=== PATIENT | male | born 1990 | race Caucasian/White ===

== ENCOUNTER 2017-02-27 20:54 | Emergency (ER) | payer MEDICAID ==
[2017-02-27] MEDS ORDERED: ONDANSETRON DISINTEGRATING 4 MG TAB PO ONE (21:12)
--- NOTE | 2017-02-27 21:14 | EDPHY ---
H & P Source: Patient Exam Limitations: No limitations - Medical/Surgical History Hx Asthma: No Hx Chronic Respiratory Disease: No Hx Diabetes: No Hx Cardiac Disease: No Hx Renal Disease: No Hx Cirrhosis: No Hx Alcoholism: No - Family History Significant Family History: No pertinent family hx - Social History Smoking Status: Current some day smoker Alcohol Use: Occasionally Drug Use: Marijuana Time Seen by Provider: 02/27/17 21:07 HPI/ROS: CHIEF COMPLAINT: Nausea, vomiting, sinus congestion, chills HISTORY OF PRESENT ILLNESS: The patient is a 18-year-old man who is here concerned about having the flu. He states that 3 days ago he began having a stuffy nose and told his coworkers he thought he was getting a cold. The next day he began feeling nauseous. He vomited once yesterday and once today. No diarrhea. He states that he had chills yesterday and thinks that he may have had a fever. Mild body aches. No neck stiffness. No altered mental status. He states that he is only nauseous when he eats. No abdominal pain. No chest pain or shortness of breath. REVIEW OF SYSTEMS: Constitutional: See HPI EENTM: See HPI Respiratory: Mild cough, smoker Cardiac: denies: chest pain, irregular heart rate, lightheadedness, palpitations Gastrointestinal/Abdominal: See HPI Genitourinary: denies: dysuria, frequency, hematuria, pain Musculoskeletal: denies: joint pain, muscle pain Skin: denies: lesions, rash, jaundice, bruising Neurological: denies: headache, numbness, paresthesia, tingling, dizziness, weakness Hematologic/Lymphatic: denies: blood clots, easy bleeding, easy bruising Immunologic/allergic: denies: HIV/AIDS, transplant EXAM: GENERAL: Well-appearing, well-nourished and in no acute distress. HEAD: Atraumatic, normocephalic. EYES: Pupils equal round and reactive to light, extraocular movements intact, sclera anicteric, conjunctiva are normal. ENT: TMs normal, nares patent, oropharynx clear without exudates. Moist mucous membranes. NECK: Normal range of motion, supple without lymphadenopathy or JVD. LUNGS: Breath sounds clear to auscultation bilaterally and equal. No wheezes rales or rhonchi. HEART: Regular rate and rhythm without murmurs, rubs or gallops. ABDOMEN: Soft, nontender, normoactive bowel sounds. No guarding, no rebound. No masses appreciated. BACK: No CVA tenderness, no spinal tenderness, step-offs or deformities EXTREMITIES: Normal range of motion, no pitting or edema. No clubbing or cyanosis. NEUROLOGICAL: Cranial nerves II through XII grossly intact. Normal speech, normal gait. 5/5 strength, normal movement in all extremities, normal sensation PSYCH: Normal mood, normal affect. SKIN: Warm, dry, normal turgor, no visible rashes or lesions. (Anthony Ortega) Constitutional: Initial Vital Signs Temperature (C) 98.1 F 02/27/17 21:24 Heart Rate 84 02/27/17 21:24 Respiratory Rate 16 02/27/17 21:24 Blood Pressure 129/75 H 02/27/17 21:24 O2 Sat (%) 97 02/27/17 21:24 O2 Delivery Mode Room Air Allergies/Adverse Reactions: No Known Allergies Allergy (Unverified 02/27/17 21:12) Home Medications: Medication Instructions Recorded Ondansetron Odt [Zofran Odt 4 mg 4 mg PO Q6H PRN 5 Days #12 tab 02/27/17 (*)] AZITHROMYCIN [Z-PACK] 250 mg PO DAILY #6 tab 02/28/17 Medical Decision Making ED Course/Re-evaluation: The patient is well appearing on exam. He is nontoxic. He is afebrile. His abdominal exam is benign. He is concerned for flu. Will check flu swab and treat with Zofran and oral hydration and observe. 10:00 p.m. the patient's abdominal exam remains benign. He is tolerating p.o. although he states that is starting to give some heartburn which is very common for him. We will give him a GI cocktail and continue to observe. His flu swab is negative. 10:45 p.m. after receiving a GI cocktail the patient vomited. His abdominal exam remains benign. We will place an IV and hydrate and obtain lab work. Care transferred to Dr. Wilson at shift change. (Anthony Ortega) Differential Diagnosis: Partial list of the Differential diagnosis considered include but were not limited to; upper respiratory infection, influenza, gastritis, food poisoning and although unlikely based on the history and physical exam, I also considered pneumonia, acute coronary disease, sepsis, meningitis. (Anthony Ortega) Other Provider: The patient was seen and re-examined. Vital signs reviewed. Breath sounds seem diminished on the right base. He was given another L of IV fluids. A chest x-ray was performed and showed a curvilinear opacity on the right. Due to the patient's symptoms of persistent cough over the last 1 and half weeks, fever, and this radiographic abnormality the patient was given an antibiotic for presumed bronchitis. He is advised to follow up with his primary care provider for repeat x-ray to assure resolution. (Myra Wilson) - Data Points Laboratory Results: Laboratory Results 02/27/17 22:52 02/27/17 22:52 Medications Given: Discontinued Medications Al Hydroxide/Mg Hydroxide (Maalox Susp) 30 ml PO ONCE ONE Stop: 02/27/17 22:11 Last Admin: 02/27/17 22:16 Dose: 30 ml Hyoscyamine Sulfate (Levsin, Hyomax-Sl) 0.25 mg PO ONCE ONE Stop: 02/27/17 22:11 Last Admin: 02/27/17 22:16 Dose: 0.25 mg Sodium Chloride (Ns) 1,000 mls @ 0 mls/hr IV EDNOW ONE; Wide Open PRN Reason: Protocol Stop: 02/27/17 22:30 Last Admin: 02/27/17 22:55 Dose: 1,000 mls Sodium Chloride (Ns) 1,000 mls @ 0 mls/hr IV ONCE ONE; Wide Open PRN Reason: Protocol Stop: 02/27/17 23:50 Last Admin: 02/27/17 23:45 Dose: 1,000 mls Lidocaine (Lidocaine 2% Viscous) 15 ml PO ONCE ONE Stop: 02/27/17 22:11 Last Admin: 02/27/17 22:16 Dose: 15 ml Ondansetron HCl (Zofran Odt) 4 mg PO EDNOW ONE Stop: 02/27/17 21:13 Last Admin: 02/27/17 21:15 Dose: 4 mg Ondansetron HCl (Zofran) 4 mg IVP EDNOW ONE Stop: 02/27/17 22:30 Last Admin: 02/27/17 22:55 Dose: 4 mg Ondansetron HCl (Zofran Odt 4 Mg Prepack#2) 1 btl LUIS FERNANDO REIS ONE Stop: 02/27/17 23:50 Last Admin: 02/28/17 00:07 Dose: 1 btl Departure - Departure Disposition: Home, Routine, Self-Care Clinical Impression: Bronchitis, Vomiting, Dehydration Condition: Good Instructions: Ondansetron (By mouth) Additional Instructions: Rest. Drink plently of fluids. Follow up with your primary care provider or return to the ER sooner if symptoms worsen as discussed. Referrals: NONE *PRIMARY CARE P,. [Primary Care Provider] - As per Instructions Stand Alone Forms: Work Excuse Prescriptions: AZITHROMYCIN [Z-PACK] 250 mg PO DAILY #6 tab Ondansetron Odt [Zofran Odt 4 mg (*)] 4 mg PO Q6H PRN 5 Days #12 tab PRN Reason: Nausea/Vomiting, Can'T Take Po
[2017-02-27 21:27] VITALS: TEMP 98.1
[2017-02-27] MEDS ORDERED: LIDOCAINE 2% VISCOUS 15 ML UDCUP PO ONE (22:10)
[2017-02-27] MEDS ORDERED: MAG HYDROX/AL HYDROX/SIMETH 30 ML UDCUP PO ONE (22:10)
[2017-02-27] MEDS ORDERED: HYOSCYAMINE SULFATE 0.125 MG TAB PO ONE (22:10)
[2017-02-27] MEDS ORDERED: ONDANSETRON 4 MG/2 ML VIAL IVP ONE ×2 (22:29→23:06)
[2017-02-27] MEDS ORDERED: NS 1,000 ML IV ONE ×2 (22:29→23:49)
[2017-02-27 22:55] LABS: PLATELET COUNT 200 10^3/uL (150-400)
[2017-02-27] MEDS ORDERED: ONDANSETRON 4MG PREPACK#2 BTL TAKEHOME ONE (23:49)
[2017-02-28 00:37] VITALS: BP 124/72; PULSE 82; RESP 14; O2SAT 95
== END 2017-02-28 00:33 | disposition home or self-care (01) ==
LOC: CED 20:54
DX: J20.9 Acute bronchitis, unspecified (principal); E86.0 Dehydration; F17.200 Nicotine dependence, unspecified, uncomplicated
CPT/HCPCS: 71046-PO; 80048-PO; 80076-PO; 81003-PO; 81015-PO; 83690-PO; 85025-PO; 87400-PO; 96374; J2405

== ENCOUNTER 2018-03-21 18:57 | Emergency (ER) | payer SELFPAY ==
--- NOTE | 2018-03-21 19:30 | EDPHY ---
H & P Time Seen by Provider: 03/21/18 19:04 HPI/ROS: CHIEF COMPLAINT: Right clavicle injury snowboarding HISTORY OF PRESENT ILLNESS: 27-year-old male arrives via private vehicle complaining of acute right clavicle pain which [place] his right shoulder and felt immediate pain. Intact skin. No dyspnea. No chest pain or trauma. No back pain or trauma. No abdominal pain or trauma. No head injury. He was helmeted. REVIEW OF SYSTEMS: 10 systems reviewed and negative with the exception of the elements mentioned in the history of present illness PAST MEDICAL/SURGICAL HISTORY: Prior left clavicle fracture. no anticoagulant use, no relevant medical/surgical history SOCIAL HISTORY: Works at [employer] PHYSICAL EXAM 1) GENERAL: Well-developed, well-nourished, alert and oriented. Appears uncomfortable. Answering questions appropriately. 2) HEAD: Normocephalic, atraumatic 3) HEENT: Pupils equal, round, reactive to light bilaterally. Negative Horners. Nasopharynx, oropharynx, clear. No deformity or angulation of nose. No septal hematoma. No rhinorrhea. No oral trauma. Ears bilaterally with normal tympanic membranes. No hemotympanum. No fluid or blood in the external auditory canal. No raccoon eyes. No Aranda sign. Teeth are normally aligned with no gross malocclusion, TMJ bilaterally nontender, facial bones nontender including the zygomatic arch, maxilla mandible. 4) NECK: No cervical collar is on. Posterior cervical spine is nontender, no stepoff, no effusion. Full range of motion which does not elicit any midline cervical spine pain, no posterior midline tenderness, no step-off. 5) LUNGS: Clear to auscultation bilaterally, no wheezes, no rhonchi, no retractions. No obvious signs of trauma. No chest wall pain. No flaring, no grunting. Moving symmetrically. No crepitus. 6) HEART: [Regular rate and rhythm, 7) ABDOMEN: No guarding, no rebound, no focal tenderness, no peritoneal signs, no signs of trauma, no ecchymosis 8) MUSCULOSKELETAL: Right upper extremity: Tender to palpation mid shaft clavicle with no tenting, no skin changes, no skin discoloration, no puncture wound. No axillary nerve dysfunction. Radial ulnar median nerve function intact distally. Brisk pulses distally. Otherwise, Moving all extremities, no focal areas of tenderness, no obvious trauma. 9) BACK: No midline vertebral tenderness, no fluctuance, no step-off, no obvious trauma, no visual or palpable abnormality. 10) SKIN: No laceration. No abrasion DIFFERENTIAL DIAGNOSIS: In no particular order including but not limited to fracture, sprain, strain, dislocation Smoking Status: Current every day smoker Constitutional: Initial Vital Signs Temperature (C) 37.3 C 03/21/18 19:01 Heart Rate 120 H 03/21/18 19:01 Respiratory Rate 19 03/21/18 19:01 Blood Pressure 137/94 H 03/21/18 19:01 O2 Sat (%) 96 03/21/18 19:01 O2 Delivery Mode Room Air Allergies/Adverse Reactions: No Known Allergies Allergy (Verified 03/21/18 19:00) Home Medications: Medication Instructions Recorded oxyCODONE/APAP 5/325 [Percocet 1 tab PO Q6 #10 tab 03/21/18 5/325] MDM/Departure - MDM Imaging Results: Imaging Impressions Clavicle X-Ray 03/21/18 19:14 Impression: Negative shoulder. Right clavicle fracture (please see below). 2. Right Clavicle, 2 views History: Pain post fall. No boarding Findings: There is a comminuted mid right clavicular shaft fracture. The proximal clavicle is superiorly displaced by twice the width of the clavicular shaft. There are 2 large fracture fragments spanning the displaced fracture. The AC joint remains normally aligned. Impression: Mid right clavicular shaft fracture. Shoulder X-Ray 03/21/18 19:14 Impression: Negative shoulder. Right clavicle fracture (please see below). 2. Right Clavicle, 2 views History: Pain post fall. No boarding Findings: There is a comminuted mid right clavicular shaft fracture. The proximal clavicle is superiorly displaced by twice the width of the clavicular shaft. There are 2 large fracture fragments spanning the displaced fracture. The AC joint remains normally aligned. Impression: Mid right clavicular shaft fracture. Images reviewed by myself Imaging: Discussed imaging studies w/ welfare case worker Radiologist ED Course/Re-evaluation: 7:40 p.m.: I reviewed the imaging with the patient . The patient is neurologically intact. On imaging the medial aspect of the clavicle is directed in a cephalad direction however on exam there is no puncture in no tenting of tissue and no overlying skin changes. He has no evidence of open fracture. He will need orthopedic follow-up and more than likely ORIF. I do not think this needs to occur emergently however. He does note he has lost his Medicaid recently and the Medicaid financial individual in the hospitalist spoke with the patient I am also leaving in no for the returned case inspector to contact the patient tomorrow. I am giving the patient orthopedic follow-up referral information as well as analgesia to go home with. I have informed him that if he were to develop a puncture in the area of his fracture he needs to seek immediate medical attention due to concerns over open fracture. He verbalized understanding of this. He has no evidence of axillary nerve dysfunction. He will be discharged appearing well. Care of patient under supervision of secondary supervising physician Dr Cevallos. - Depart Disposition: Home, Routine, Self-Care Clinical Impression: Injury while snowboarding Clavicle fracture Qualifiers: Encounter type: initial encounter Clavicle location: shaft Fracture type: closed Fracture alignment: displaced Laterality: right Qualified Code(s): S42.021A - Displaced fracture of shaft of right clavicle, initial encounter for closed fracture Condition: Good Instructions: Clavicle Fracture (ED) Additional Instructions: Return to the ER immediately if you experience discoloration, have worsening pain, numbness, tingling, or any other symptoms that concern you. If you received x-rays in the emergency department today, be advised, that ligamentous , tendon, muscular, and other non-bony injury cannot be fully ruled out. Try to keep your affected extremity elevated above the level of your chest, and keep cold packs on the affected area, for the next 48 hours. If you develop a puncture wound or break in the skin in the location of your broken bone you need to seek immediate medical attention. Prescriptions: oxyCODONE/APAP 5/325 [Percocet 5/325] 1 tab PO Q6 #10 tab Referrals: Ed Hay MD [Medical Doctor] - 2-3 days, call for appt.
[2018-03-21] MEDS ORDERED: OXYCODONE/APAP 5/325 TAB PO ONE (19:43)
[2018-03-21 20:14] VITALS: BP 129/71
== END 2018-03-21 20:16 | disposition home or self-care (01) ==
DX: S42.021A Displaced fracture of shaft of right clavicle, initial encounter for closed fracture (principal); V00.311A Fall from snowboard, initial encounter; F17.200 Nicotine dependence, unspecified, uncomplicated
CPT/HCPCS: A4565

== ENCOUNTER 2018-03-25 11:13 | Day surgery (SDC) | payer MEDICAID ==
[2018-03-25] MEDS ORDERED: BUPIVACAINE/EPI 0.5% 30 ML SDV ONE (12:24)
[2018-03-25] MEDS ORDERED: LIDOCAINE 1% 2 ML INJ ID PRN (12:33)
[2018-03-25] MEDS ORDERED: LR 1,000 ML IV ONE (12:33)
[2018-03-25] MEDS ORDERED: ceFAZolin 2 GM/DEXTROSE 100 ML IV ONE (13:12)
--- NOTE | 2018-03-25 13:12 | PDHPUP ---
History & Physical Update H&P update statement: This history and physical update is based on an assessment of the patient which was completed after admission or registration (within 24 hours), but prior to the surgery/procedure. H&P update: H&P reviewed & patient examined, no change in patient's condition since H&P completed
[2018-03-25] MEDS ORDERED: MIDAZOLAM 2 MG/2 ML VIAL IVP ONE (13:22)
--- NOTE | 2018-03-25 13:23 | PDANEPAE ---
ANE Past Medical History - Cardiovascular History Hx Hypertension: No Hx Arrhythmias: No Hx Chest Pain: No Hx Coronary Artery / Peripheral Vascular Disease: No Hx CHF / Valvular Disease: No Hx Palpitations: No - Pulmonary History Hx COPD: No Hx Asthma/Reactive Airway Disease: No Hx Recent Upper Respiratory Infection: Yes Hx Oxygen in Use at Home: No Hx Sleep Apnea: No - Neurologic History Hx Cerebrovascular Accident: No Hx Seizures: No Hx Dementia: No - Endocrine History Hx Diabetes: No Hypothyroid: No Hyperthyroid: No Obesity: no - Renal History Hx Renal Disorders: No - Liver History Hx Hepatic Disorders: No - Neurological & Psychiatric Hx Hx Neurological and Psychiatric Disorders: No - Cancer History Hx Cancer: No - Congenital Disorder History Hx Congenital Disorders: No - GI History GERD: no Hx Gastrointestinal Disorders: No - Surgical History Prior Surgeries: None ANE Review of Systems Review of Systems: - Exercise capacity Exercise capacity: >=4 METS METS (RN): 6 METS ANE Patient History - Allergies Allergies/Adverse Reactions: No Known Allergies Allergy (Verified 03/21/18 19:00) - NPO status NPO Since - Liquids (Date): 03/25/18 NPO Since - Liquids (Time): 00:00 NPO Since - Solids (Date): 03/25/18 NPO Since - Solids (Time): 00:00 - Anes Hx Hx Anesthesia Complications (with details): N/A - Smoking Hx Smoking Status: Current every day smoker - Alcohol Use Alcohol Use: Occasionally - Family Anes Hx Family Anes Hx: neg - N/A Family Hx Anesthesia Complications: none known ANE Labs/Vital Signs - Vital Signs Blood Pressure: 111/78 Heart Rate: 61 Respiratory Rate: 16 O2 Sat (%): 96 Height: 175.26 cm Weight: 70.307 kg ANE Physical Exam - Airway Neck exam: FROM Mallampati Score: Class 1 Mouth exam: normal dental/mouth exam - Pulmonary Pulmonary: no respiratory distress, no rales or rhonchi, clear to auscultation - Cardiovascular Cardiovascular: regular rate and rhythym, no murmur, rub, or gallop - ASA Status ASA Status: II ANE Anesthesia Plan Anesthesia Plan: general endotracheal anesthesia Total IV Anesthesia: No
[2018-03-25] MEDS ORDERED: MIDAZOLAM 2 MG/2 ML VIAL ONE (13:25)
[2018-03-25] MEDS ORDERED: fentaNYL 100 MCG/2 ML INJ ONE ×3 (13:26→15:08)
[2018-03-25] MEDS ORDERED: PROPOFOL 200 MG/20 ML VIAL ONE (13:27)
[2018-03-25] MEDS ORDERED: ONDANSETRON 4 MG/2 ML VIAL ONE (13:27)
[2018-03-25] MEDS ORDERED: LIDOCAINE 2% 5 ML SDV ONE (13:27)
[2018-03-25] MEDS ORDERED: ROCURONIUM 100 MG/10 ML VIAL ONE (13:27)
[2018-03-25] MEDS ORDERED: KETOROLAC 30 MG/1 ML SDV ONE (13:27)
[2018-03-25] MEDS ORDERED: DEXAMETHASONE 4 MG/ML VIAL ONE (13:27)
[2018-03-25] MEDS ORDERED: ceFAZolin 1 GM VIAL ONE ×2 (13:34)
[2018-03-25] MEDS ORDERED: PHENYLEPHRINE HCL 100 MCG/ML SYR ONE (13:56)
[2018-03-25] MEDS ORDERED: HYDROmorphONE/DILAUDID 2 MG/ML INJ IVP PRN (14:11)
[2018-03-25] MEDS ORDERED: ONDANSETRON 4 MG/2 ML VIAL IVP PRN (14:11)
[2018-03-25] MEDS ORDERED: ACETAMINOPHEN 500 MG TAB PO PRN (14:11)
[2018-03-25] MEDS ORDERED: LR 500 ML IV PRN (14:11)
[2018-03-25] MEDS ORDERED: fentaNYL 100 MCG/2 ML INJ IVP PRN (14:11)
[2018-03-25] MEDS ORDERED: MEPERIDINE 25 MG/0.5 ML AMP IVP PRN (14:11)
[2018-03-25] MEDS ORDERED: HYDROCODONE/APAP 5/325 TAB PO PRN (14:11)
[2018-03-25] MEDS ORDERED: NALOXONE HCL 0.4 MG/ML INJ IVP PRN (14:11)
[2018-03-25] MEDS ORDERED: PHENYLEPHRINE HCL 100 MCG/ML SYR IVP PRN (14:11)
[2018-03-25] MEDS ORDERED: oxyCODONE IR 5 MG TAB PO PRN (14:11)
[2018-03-25] MEDS ORDERED: SUGAMMADEX SODIUM 200 MG/2 ML VIAL IVP ONE (14:37)
--- NOTE | 2018-03-25 14:59 | POSTOPPROG ---
Post Op Note Date of Operation: 03/25/18 Surgeon: Ed Hay Anesthesia: GET(General Endotracheal) Pre-op Diagnosis: R clavicle fx Post-op Diagnosis: R clavice fx Indication: above Procedure: ORIF R clavicle Findings: fx Inf/Abcess present in the surg proc area at time of surgery?: No EBL: Minimal
[2018-03-25] MEDS ORDERED: OXYCODONE/APAP 5/325 TAB ONE (15:57)
[2018-03-25] MEDS ORDERED: oxyCODONE IR 5 MG TAB ONE (15:59)
--- NOTE | 2018-03-25 16:14 | POSTANESTH ---
Post Anesthetic Evaluation Cardiovascular Status: Normal, Stable Respiratory Status: Normal, Stable Level of Consciousness/Mental Status: Can Participate in Eval Pain Control: Adequate, Prn Tx Ordered Nausea/Vomiting Control: Adequate, Prn Tx Ordered Complications Possibly Related to Anesthesia: None Noted
[2018-03-25 16:43] VITALS: BP 113/74
--- NOTE | 2018-03-25 20:32 | GOP ---
[f rep st] OPERATIVE REPORT DATE OF OPERATION: 03/25/2018 SURGEON: Ed Hay MD DEPUTY ATTORNEY GENERAL: None. ANESTHESIA: General. PREOPERATIVE DIAGNOSIS: Right clavicle fracture. POSTOPERATIVE DIAGNOSIS: Right clavicle fracture. PROCEDURE PERFORMED: Open reduction and internal fixation, right clavicle fracture. FINDINGS: SPECIMENS: None. ESTIMATED BLOOD LOSS: 20 mL. INDICATIONS: This is a young male who sustained as displaced comminuted clavicle fracture. I discus sed ORIF with him given my findings and he elected to proceed. We discussed risks of nonunion, malun ion, continued pain, need for hardware removal, lung injury, blood clot, wound complications, and he elected to proceed. Informed consent was obtained. All questions were answered. He was marked preo peratively. DESCRIPTION OF PROCEDURE: He was taken to the operative suite, sterilely prepped and draped in hodan l fashion. Time-out was performed verifying site, side, location and agreed upon by all members of t he team. I injected with Marcaine with epinephrine and made an incision over the clavicle. I dissected down t o this protecting neurovascular structures. His clavicle was widely displaced and there was a commin uted fragment. I lined up the 2 main fragments and held these provisionally with a K-wire. I placed a plate and contoured this. Selected an 8 hole plate. Placed cortical screws on each side, bringin g the fracture together in compression and holding this. I then brought the piece of comminution alysha k in good position and held this with cerclages with a #1 Vicryl. I took final x-rays confirming red uction and good placement of the fragments and hardware. He was thoroughly irrigated, closed with 0 Vicryl, 2-0 Vicryl, 3-0 Quill, and Dermabond. He was taken to PACU in stable condition. IMPLANT: Synthes clavicle plate with 3.5 nonlocking screws. COMPLICATIONS: None. DRAINS: None. CONDITION: Stable. /[id number]/MODL
== END 2018-03-25 17:30 | disposition home or self-care (01) ==
LOC: FSGY 11:13
PROVIDERS: ATTEND Orthopaedic Surgery
PROC: 0PS904Z Reposition Right Clavicle with Internal Fixation Device, Open Approach (ICD-10-PCS; principal; 2018-03-25 13:30)
DX: S42.021A Displaced fracture of shaft of right clavicle, initial encounter for closed fracture (principal); V00.311A Fall from snowboard, initial encounter; Y93.23 Activity, snow (alpine) (downhill) skiing, snowboarding, sledding, tobogganing and snow tubing; Y92.838 Other recreation area as the place of occurrence of the external cause; F17.200 Nicotine dependence, unspecified, uncomplicated
CPT/HCPCS: 23515; C1769; C1713; J0690; J1100; J1885; J2250; J2370; J2405; J2704; J3010